=== PATIENT | male | born 1955 | race Caucasian/White ===

== ENCOUNTER 2023-12-22 11:46 | Emergency (ER) | payer BC, SELFPAY ==
[2023-12-22 11:47] VITALS: BP 133/101
[2023-12-22 12:04] LABS: % Basophils 0.2 % (0-2); % Eosinophils 0.6 % (0-6); % Immature Granulocytes 0.2 % (0-0.5); % Lymphocytes 15.1 % (20.5-51.1); % Neutrophils 75.9 % (42.2-75.2); Absolute Lymphocytes 0.8 10^3/uL (1.2-3.4); Absolute Monocytes 0.4 10^3/uL (0.1-0.6); Absolute Neutrophils 3.8 10^3/uL (1.4-6.5); Hematocrit 49.6 % (39.0-52.0); Hemoglobin 17.5 g/dL (13.0-18.0); Mean Corp Hgb Conc. 35.3 g/dL (33.0-37.0); Mean Corpuscular Hgb 29.9 pg (27.0-31.0); Mean Corpuscular Volume 84.8 fL (80.0-94.0); Mean Platelet Volume 9.4 fL (7.4-10.4); Nucleated Red Blood Cells % 0 % (-); Platelet Count 191 10^3/uL (130-400); Red Blood Cell Count 5.85 10^6/uL (4.70-6.10); Red Cell Dist. Width 13.7 % (11.5-14.5)
[2023-12-22 12:18] LABS: ALT (SGPT) 40 U/L (0-50); AST (SGOT) 38 U/L (17-59); Albumin 4.7 g/dl (3.5-5.0); Alkaline Phosphatase 94 U/L (38-126); Blood Urea Nitrogen 29 mg/dl (9-20); Calcium 9.5 mg/dl (8.4-10.2); Carbon Dioxide 18 mmol/L (22-30); Chloride 104 mmol/L (98-107); Glucose 125 mg/dl (70-99); Lipase 66 U/L (23-300); Potassium 3.8 mmol/L (3.5-5.1); Sodium 135 mmol/L (135-145); Total Bilirubin 1.7 mg/dl (0.2-1.3); Total Protein 7.6 g/dl (6.3-8.2); eGFR > 60.00
--- NOTE | 2023-12-22 13:43 | ED.GENMED ---
History of Present Illness
General
Chief Complaint: Abdominal Symptoms
Source: patient
Exam Limitations: none
Time Seen by Provider: 12/22/23 13:36
Nursing documentation reviewed up to this point in time: agreed with
History of Present Illness
History of Present Illness:
Patient to ED with vomiting and diarrhea x 2 days. Reports intermittent fever/chills. Mild generalized abdominal pain. Has not been able to eat or drink. Advised by PCP to come to ED if symptoms persisted more than 48 hours. Brought self to ED
for eval. No prior history of same.
Past History
Past History
ED Past Medical History: HTN, Hypercholesterolemia and Psychiatric
ED Past Surgical History: Orthopedic
Social History
Tobacco: Non-smoker
Alcohol: Occasional
Personal:
Living: with family
Review of Systems
Review of Systems
Allergies reviewed?: Yes
All Other Systems: ROS reviewed and negative except as documented in HPI and ROS
Constitutional: Reports fever, fatigue and chills
EENT: Reports no symptoms
Respiratory: Reports no symptoms
Cardiac: Reports no symptoms
ABD/GI: Reports abdominal pain, nausea, vomiting and diarrhea
: Reports no symptoms
Musculoskeletal: Reports no symptoms
Skin: Reports no symptoms
Neurological: Reports weakness
Phy Exam
General Physical Exam
General Presentation: well appearing and mild distress
General age: appears stated age
General Skin: warm and dry
General Habitus: normal
General Mental: alert
Gastrointestinal Exam
Gastrointestinal Exam: normal bowel sounds, soft, no organomegaly, non distended and no cva tenderness
Palpation: generalized: Mild tenderness
Musculoskeletal Exam
Musculoskeletal Exam: full ROM and neuro vasc intact
Skin Exam
Skin Exam: normal color, warm/dry and no rash
Psychiatric Exam
Psychiatric Exam: normal mood/affect
Course
Orders/Labs/Results
Orders:
Orders
12/22/23 11:56
Complete Blood Count/With Diff Urgent
Comprehensive Metabolic Panel Urgent
Lipase Urgent
12/22/23 13:41
Ondansetron Injectable [Zofran] 4 mg IV NOW STA
12/22/23 13:42
CT Abd/pelvis W Iv Cont Urgent
Comment:
Reason For Exam: pain, vomiting
0.9% Sodium Chloride 1000 ml [Nss] 1,000 ml IV BOLUS
12/22/23 14:06
Urinalysis Reflex To Culture Urgent
Date Specimen was Collected: 12/22/23
Time Specimen was Collected: 14:02
Urine Microscopic Reflex Cult Urgent
STOOL [C difficile Antigen & Toxins] Urgent
GARY Source: Feces/Stool
Specimen Description:
Date Specimen was Collected: 12/22/23
Time Specimen was Collected: 14:01
Stool Culture Urgent
GARY Source: Feces/Stool
Specimen Description:
Date Specimen was Collected: 12/22/23
Time Specimen was Collected: 14:01
Abnormal Lab Results
12/22/23 12/22/23
11:56 14:06
Absolute Lymphs (auto) 0.8 L 10^3/uL
(1.2-3.4)
Neutrophils % 75.9 H %
(42.2-75.2)
Lymphocytes % 15.1 L %
(20.5-51.1)
Carbon Dioxide 18 L mmol/L
(22-30)
BUN 29 H mg/dl
(9-20)
Glucose 125 H mg/dl
(70-99)
Total Bilirubin 1.7 H mg/dl
(0.2-1.3)
Urine Ketones Trace A
(Negative)
Ur Occult Blood Reflex 3+ A
(Negative)
Urine Bilirubin 1+ A
(Negative)
Leukocyte Esterase Rfl Trace A
(Negative)
Urine Albumin (Reflex) 1+ A
(Neg - Trace)
12/22/23 11:56
12/22/23 11:56
Vital Signs
Initial and Last Documented VS:
Initial Vital Signs
Temp Pulse Resp BP Pulse Ox
98.1 F 68 18 133/101 96
12/22/23 11:47 12/22/23 11:47 12/22/23 11:47 12/22/23 11:47 12/22/23 11:47
Last Documented Vital Signs
Temp Pulse Resp BP Pulse Ox
98.1 F 73 16 127/81 99
12/22/23 11:47 12/22/23 18:07 12/22/23 18:07 12/22/23 18:07 12/22/23 18:07
*Critical Care Note
Total Time (30-74mins, 75-104mins- exclusive of procedures): Not Applicable
Update Note
Update Note:
Improved with IVF and zofran. Ct and lab results discussed with patient. He is discharge dhome, close follow up with PCP. Given instructions on s/s to return to ED and he is agreeable to plan.
ED Attending Note
-
Portions of this chart may have been created with voice recognition software.� Occasional wrong word or��sound alike� substitutions may have occurred due to the inherent limitations of voice recognition software.
Discharge Plan
Departure
Patient Disposition: Home (Routine Discharge)
Date of Disposition: 12/22/23
Time of Disposition: 17:54
Patient with high blood pressure during this ER visit?: No
Condition: Good
Covid-19: Not Applicable
Discharge Problem:
Vomiting and diarrhea
Instructions: Diarrhea in teens and adults, Clear Liquid Diet, Nausea and Vomiting, Adult (DC)
Prescriptions:
New
ondansetron 4 mg tablet,disintegrating
4 mg PO Q8H PRN (Reason: nausea and vomiting) Qty: 12 0RF
Referrals:
Landon Coates I., DO [Family Provider] - Tomorrow
Stand Alone Forms: Return to Work
Interventions
Interventions:
*Risk Screen - Suicide Last Done: 12/22/23 11:47
*General Assessment Last Done: 12/22/23 11:47
*Neglect/Abuse Screening Last Done: 12/22/23 11:47
*Nursing Disposition Last Done: 12/22/23 18:08
UA-Kbzlnp-Zizazwyqqm Assessment Last Done: 12/22/23 14:04
Discharge Date and Time
Discharge Date/Time: 12/22/23 18:09
Print Language: SLOVAK
[2023-12-22] MEDS: NSS 1000 IV (13:58)
[2023-12-22] MEDS: ZOFRAN 4 MG IV (13:58)
[2023-12-22 14:19] LABS: Urine Albumin 1+ (Neg - Trace); Urine Bilirubin 1+ (Negative); Urine Character Clear (Clear); Urine Color Amber; Urine Glucose Negative (Negative); Urine Ketone Trace (Negative); Urine Leukocyte Trace (Negative); Urine Nitrite Negative (Negative); Urine Occult Blood 3+ (Negative); Urine Urobilinogen Negative (Neg - 1+)
[2023-12-22 14:33] VITALS: BP 129/81
[2023-12-22 14:43] LABS: Urine Red Blood Cell 0-2 /HPF (0-2); Urine White Cell 0-2 /HPF (0-5)
[2023-12-22 17:08] VITALS: BP 130/85
[2023-12-22 18:07] VITALS: BP 127/81
== END 2023-12-22 18:09 | disposition home or self-care (01) ==
LOC: EMR 11:46
PROVIDERS: Emergency Medicine; Nurse Practitioner; EMERGENCY PHYSICIAN Emergency Medicine; FAMILY PHYSICIAN Internal Medicine
DX: R19.7 Diarrhea, unspecified (principal); R11.2 Nausea with vomiting, unspecified; K92.1 Melena; R50.9 Fever, unspecified; R10.84 Generalized abdominal pain; I10 Essential (primary) hypertension; E78.00 Pure hypercholesterolemia, unspecified; F41.9 Anxiety disorder, unspecified; Z96.652 Presence of left artificial knee joint
CPT/HCPCS: 99285; 96361; 96374; 74177; 80053; 81003; 81015; 83690; 85025; 87045; 87046; 87324; 87427; 87449; Q9967

== ENCOUNTER → 2025-06-12 12:25 | Outpatient (REF) | payer BC, SELFPAY | LOC: RAD 12:25 | PROVIDERS: ATTENDING PHYSICIAN Nurse Practitioner Family | DX: M25.512 Pain in left shoulder (principal) | CPT/HCPCS: 73030 ==